=== PATIENT | male | born 1985 | race Caucasian/White ===

== ENCOUNTER 2020-02-13 23:36 | Inpatient (IN) | payer OTHER ==
[~2020-02-13] VITALS: Ht 177.8 cm; Wt 142.9 kg
[2020-02-13] MEDS ORDERED: TOPROL XL200 MG (23:56)
--- NOTE | 2020-02-13 23:56 | NUR ---
PT ALERTA Y ORIENTADO X3 ESFERAS QUIEN REFIERE [address] DESDE [place] HACEN 3 PAIGE, DESDE ENTONCES PRESENTA DOLOR ABDOMINAL QUE GARRIDO INCREMENTADO CON LOS PAIGE. VOMITOS (1) Y DIARRAS (1). HX: ARRITMIA CARDIACA Y HBP.
[2020-02-13] MEDS ORDERED: FLECAINIDE ACE100 MG (23:59)
--- NOTE | 2020-02-14 00:58 | NUR ---
PTE EVALUADO POR EL DR LINH CHAPPELLIEN [place]. MS C FOLH ORIENTA SOBRE EL MISMO, LO CUAL REFIERE ENTENDER, REALIZA PRUEBAS DE LABORATORIO Y ADMINISTRA MEDICAMENTOS LINNEA ORDEN MEDICA Y SIGUIENDO MEDIDAS ASEPTICAS.
--- NOTE | 2020-02-14 07:00 | NUR ---
PACIENTE ALERTA Y ORIENTADO EN CLEMENTE BOOM ESFERAS, PRESENTA BUEN PATRON RESPIRATORIO Y ALVAREZ DE DOLOR, CANALIZADO EN MANO RT PATENTE Y ALVAREZ DE S/S DE FLEBITIS E INFILTRACION, RECIBIENDO 0.9% NSS A 125 ML/HR. DR Oliver SÁNCHEZ EVALUA PACIENTE, PENDIENTE COLECTAR PRUEBA NASOFARINGEA MOLECULAR RAPIDA PARA COVID 19.
[2020-02-18] MEDS ORDERED: FLECAINIDE ACET50 MG PO (14:28)
[2020-02-18] MEDS ORDERED: PROTONIX20 MG PO (14:28)
[2020-02-18] MEDS ORDERED: TOPROL XL100 M1 PO (14:28)
== END 2020-02-18 14:40 | disposition home or self-care (01) | DRG 440 ==
LOC: ER 23:36 → SEC-K 02-14 09:04 → SURH 02-14 09:04
PROVIDERS: ADMIT Internal Medicine; ATTEND Internal Medicine
PROC: BW40ZZZ Ultrasonography of Abdomen (ICD-10-PCS; principal; 2020-02-14)
PROC: 0FJB8ZZ Inspection of Hepatobiliary Duct, Via Natural or Artificial Opening Endoscopic (ICD-10-PCS; 2020-02-14)
PROC: 0FJD8ZZ Inspection of Pancreatic Duct, Via Natural or Artificial Opening Endoscopic (ICD-10-PCS; 2020-02-14)
PROC: BF14YZZ Fluoroscopy of Gallbladder, Bile Ducts and Pancreatic Ducts using Other Contrast (ICD-10-PCS; 2020-02-14)
DX: K85.10 Biliary acute pancreatitis without necrosis or infection (principal); I10 Essential (primary) hypertension; I49.9 Cardiac arrhythmia, unspecified; E66.8 Other obesity; R10.11 Right upper quadrant pain; Z20.828 Contact with and (suspected) exposure to other viral communicable diseases